=== PATIENT | male | born 1990 | race Caucasian/White ===

== ENCOUNTER 2023-10-10 18:10 | Emergency (ER) | payer BC ==
[~2023-10-10] VITALS: Ht 175.3 cm; Wt 68.0 kg
[2023-10-10 18:15] VITALS: BP 138/92; PULSE 80; RESP 19; TEMP 97.8; O2SAT 20
[2023-10-10 18:46] VITALS: BP 126/72; PULSE 84; RESP 19; TEMP 97.8; O2SAT 98
[2023-10-10 20:09] LABS: ANION GAP 14.2 (8-16); CARBON DIOXIDE 26.4 mmol/L (21-32); CREATININE 1.8 mg/dL (0.6-1.3); POTASSIUM 5.6 mmol/L (3.5-5.1)
[2023-10-10 20:29] LABS: BASOPHILS % (AUTO) 0.4 % (0.0-2.0); EOSINOPHILS # (AUTO) 0.1 K/uL (0-0.4); EOSINOPHILS % (AUTO) 2.1 % (0.0-4.0); HEMATOCRIT 44.3 % (36-52); HEMOGLOBIN 15.4 g/dL (12.0-18.0); LYMPHOCYTES # (AUTO) 2.3 K/uL (2.0-11.5); LYMPHOCYTES % (AUTO) 32.5 % (20.5-51.1); MEAN CORPUSCULAR HEMOGLOBIN 31 pg (27-31); MEAN CORPUSCULAR HGB CONC 35 g/dL (33-37); MEAN CORPUSCULAR VOLUME 90.7 fL (80-94); MONOCYTES # (AUTO) 0.9 K/uL (0.8-1.0); MONOCYTES % (AUTO) 13.6 % (1.7-9.3); NEUTROPHILS # (AUTO) 3.6 K/uL (1.8-7.7); NEUTROPHILS % (AUTO) 51.4 % (42.2-75.2); PLATELET COUNT (AUTO) 170 K/uL (140-450); RED BLOOD CELL COUNT(AUTO) 4.89 MIL/uL (4.20-6.10); RED CELL DISTRIBUTION WIDTH 12.9 % (11.6-13.7)
[2023-10-10] MEDS ORDERED: NACL 0.9% 2,000 ML IV ONE (20:30)
[2023-10-10] MEDS ORDERED: ACETAMINOPHEN 325 MG TAB PO ONE (20:55)
[2023-10-10 22:42] LABS: ANION GAP 10.8 (8-16); CALCIUM 9.2 mg/dL (8.5-10.1); CARBON DIOXIDE 27.4 mmol/L (21-32); CREATININE 1.7 mg/dL (0.6-1.3); POTASSIUM 5.2 mmol/L (3.5-5.1)
== END 2023-10-10 23:39 | disposition home or self-care (01) ==
LOC: MED 18:10
DX: R56.9 Unspecified convulsions (principal); Z79.899 Other long term (current) drug therapy
CPT/HCPCS: 36415; 80048; 85025; 96360; 99283; J7030